=== PATIENT | male | born 1960 | race Caucasian/White ===

== ENCOUNTER → 2019-02-04 | Outpatient (CLI) | payer MEDICAID, OTHER ==
--- NOTE | 2019-02-04 19:38 | REP ---
HISTORY: Pain after trauma. COMPARISON: None. FINDINGS: No acute fracture or destructive osseous lesion. Electronically Signed by Og Gonzalez DO 02/04/2019 07:46 P
--- NOTE | 2019-02-04 19:39 | REP ---
HISTORY: Pain after trauma. COMPARISON: None. FINDINGS: The joint spaces are symmetric and relatively well maintained. There is no evidence of acute fracture or destructive osseous lesion. IMPRESSION: Negative. Electronically Signed by Og Gonzalez DO 02/04/2019 07:46 P
== END ==
LOC: M ADAMS 18:02
PROVIDERS: ATTEND Physician Assistant
DX: S60.221A Contusion of right hand, initial encounter (principal); S60.211A Contusion of right wrist, initial encounter; X58.XXXA Exposure to other specified factors, initial encounter; Y92.89 Other specified places as the place of occurrence of the external cause

== ENCOUNTER 2019-09-18 14:14 | Emergency (ER) | payer OTHER ==
[~2019-09-18] VITALS: Ht 177.8 cm; Wt 74.1 kg
[2019-09-18 14:43] LABS: BASO % 0.6 % (0.0-1.0); EOS % 0.3 % (0.0-3.0); HEMATOCRIT 40.4 % (42.0-52.0); HEMOGLOBIN 13.7 g/dl (13.5-17.5); LYMPH # 1.9 10^3/uL (1.5-5.0); LYMPH % 26.3 % (24.0-44.0); MEAN CORPUSCULAR HEMOGLOBIN 28.2 pg (27.0-33.0); MEAN CORPUSCULAR HGB CONC 33.9 g/dl (32.0-36.5); MEAN CORPUSCULAR VOLUME 83.1 fl (80.0-96.0); MONO # 0.5 10^3/uL (0.0-0.8); MONO % 6.8 % (0.0-5.0); NEUTROPHILS # 4.6 10^3/uL (1.5-8.5); NEUTROPHILS % 65.6 % (36.0-66.0); PLATELET COUNT, AUTOMATED 240 10^3/uL (150-450); RED BLOOD COUNT 4.86 10^6/uL (4.30-6.10); WHITE BLOOD COUNT 7.1 10^3/uL (4.0-10.0)
--- NOTE | 2019-09-18 15:08 | REP ---
CHEST, SINGLE VIEW: There is no evidence of acute infiltrate. No pleural effusion is seen. The heart is normal in size. The mediastinal silhouette is unremarkable. The visualized osseous structures are intact. IMPRESSION: No acute pulmonary disease. Electronically Signed by Jason Vale MD 09/22/2019 04:06 P
[2019-09-18 15:18] LABS: BLOOD UREA NITROGEN 11 MG/DL (7-18); CALCIUM LEVEL 9.1 MG/DL (8.5-10.1); CARBON DIOXIDE LEVEL 25 MEQ/L (21-32); CHLORIDE LEVEL 108 MEQ/L (98-107); CK-MB VALUE MASS < 1.0 NG/ML (<3.6); CPK CREATINE PHOSPHOKINASE 118 U/L (39-308); CREATININE FOR GFR 0.95 MG/DL (0.70-1.30); GLOMERULAR FILTRATION RATE > 60.0 (>56); GLUCOSE, FASTING 89 MG/DL (70-100); MB/CK RELATIVE INDEX 0.85 (< OR =4); SODIUM LEVEL 139 MEQ/L (136-145); TROPONIN I < 0.02 NG/ML (< 0.10)
[2019-09-18 20:15] LABS: CK-MB VALUE MASS < 1.0 NG/ML (<3.6); CPK CREATINE PHOSPHOKINASE 128 U/L (39-308); MB/CK RELATIVE INDEX 0.78 (< OR =4); TROPONIN I < 0.02 NG/ML (< 0.10)
[2019-09-18 21:01] VITALS: BP 122/89
--- NOTE | 2019-09-19 18:34 | ECGEPIP ---
[facility] - ED Test Date: 2019-09-18 Pat Name: ALFRED JUSTIN Department: Room: - Gender: Male Pan Operator: JBridgette : 1960 Requested By: Victorino Juan Order Number: [id number] Reading MD: Stefanie Venegas Measurements Intervals [place] Rate: 98 P: 61 MO: 154 QRS: 49 QRSD: 83 T: 61 QT: 321 QTc: 412 Interpretive Statements SINUS RHYTHM NO PRIOR Electronically Signed on 09-19-2019 18:34:19 EST by Stefanie Venegas
--- NOTE | 2019-09-19 18:42 | ECGEPIP ---
[facility] - ED Test Date: 2019-09-18 Pat Name: ALFRED JUSTIN Department: Room: - Gender: Male Quitline Counselor: PEDRO : 1960 Requested By: Victorino Juan Order Number: [id number] Reading MD: Stefanie Venegas Measurements Intervals [place] Rate: 78 P: 66 HI: 170 QRS: 56 QRSD: 88 T: 63 QT: 356 QTc: 407 Interpretive Statements SINUS RHYTHM DECREASED RATE 09/18/19 Electronically Signed on 09-19-2019 18:42:29 EST by Stefanie Venegas
== END 2019-09-18 21:13 | disposition home or self-care (01) ==
LOC: M ED 14:14
DX: R07.9 Chest pain, unspecified (principal); Z88.6 Allergy status to analgesic agent; Z88.8 Allergy status to other drugs, medicaments and biological substances

== ENCOUNTER → 2021-08-30 | Outpatient (REF) | payer OTHER ==
[2021-08-30 12:36] LABS: BASO % 0.5 % (0.0-1.0); EOS # 0.1 10^3/uL (0.0-0.5); EOS % 0.9 % (0.0-3.0); HEMATOCRIT 44.2 % (42.0-52.0); HEMOGLOBIN 14.7 g/dl (13.5-17.5); LYMPH % 35.3 % (24.0-44.0); MEAN CORPUSCULAR HEMOGLOBIN 28.1 pg (27.0-33.0); MEAN CORPUSCULAR HGB CONC 33.3 g/dl (32.0-36.5); MEAN CORPUSCULAR VOLUME 84.5 fl (80.0-96.0); MONO # 0.6 10^3/uL (0.0-0.8); MONO % 11.3 % (2.0-8.0); NEUTROPHILS # 2.9 10^3/uL (1.5-8.5); NEUTROPHILS % 51.8 % (36.0-66.0); PLATELET COUNT, AUTOMATED 279 10^3/uL (150-450); RED BLOOD COUNT 5.23 10^6/uL (4.30-6.10); WHITE BLOOD COUNT 5.7 10^3/uL (4.0-10.0)
[2021-08-30 13:12] LABS: C REACTIVE PROTEIN QUANTITATIV < 0.30 MG/DL (0.00-0.30); RHEUMATOID FACTOR QUANT < 10.0 IU/ML (<15.0)
[2021-08-30 13:16] LABS: ALBUMIN 3.8 GM/DL (3.2-5.2); ALT/SGPT 24 U/L (12-78); BILIRUBIN,TOTAL 0.3 MG/DL (0.2-1.0); BLOOD UREA NITROGEN 10 MG/DL (7-18); CALCIUM LEVEL 9.4 MG/DL (8.5-10.1); CARBON DIOXIDE LEVEL 26 MEQ/L (21-32); CHLORIDE LEVEL 109 MEQ/L (98-107); CREATININE FOR GFR 0.97 MG/DL (0.70-1.30); FREE T4 0.92 NG/DL (0.76-1.46); GLOMERULAR FILTRATION RATE > 60.0 (>56); GLUCOSE, FASTING 81 MG/DL (70-100); POTASSIUM SERUM 4.5 MEQ/L (3.5-5.1); SODIUM LEVEL 140 MEQ/L (136-145); THYROID STIMULATING HORMONE 0.677 uIU/ML (0.358-3.740); TOTAL PROTEIN 6.9 GM/DL (6.4-8.2)
[2021-08-30 13:28] LABS: FOLATE 12.5 NG/ML; TOTAL 25(OH) VITAMIN D 23.5 NG/ML (30.0-100.0); VITAMIN B12 LEVEL 252 PG/ML
[2021-08-30 13:37] LABS: HEMOGLOBIN A1c 5.7 %
[2021-08-31 20:12] LABS: ANA (HEP2) Negative (.); Lyme Disease IgG/IgM Antibodie <0.91 ISR (0.00-0.90); Lyme Disease IgM Ab Quantitati <0.80 index (0.00-0.79)
== END ==
LOC: M SFHCADAM 10:27
PROVIDERS: ATTEND Physician Assistant
DX: R55 Syncope and collapse (principal); R00.1 Bradycardia, unspecified; R07.81 Pleurodynia; K21.9 Gastro-esophageal reflux disease without esophagitis; R13.19 Other dysphagia; F17.210 Nicotine dependence, cigarettes, uncomplicated; R06.00 Dyspnea, unspecified; Z12.5 Encounter for screening for malignant neoplasm of prostate; Z13.1 Encounter for screening for diabetes mellitus

== ENCOUNTER → 2021-08-30 | Outpatient (CLI) | payer OTHER | LOC: M ADAMS 11:14 | PROVIDERS: ATTEND Physician Assistant | DX: R55 Syncope and collapse (principal); M25.562 Pain in left knee; M25.561 Pain in right knee; R06.00 Dyspnea, unspecified; R07.81 Pleurodynia; M54.2 Cervicalgia ==

== ENCOUNTER → 2021-08-31 | Outpatient (CLI) | payer OTHER ==
[~2021-08-31] MED LIST: ISOVUE-370 76% 100ML VIAL As Ordered ONE
== END ==
LOC: M RAD 09:02
PROVIDERS: ATTEND Physician Assistant
DX: R07.81 Pleurodynia (principal)
CPT/HCPCS: 71275; Q9967

== ENCOUNTER → 2021-10-06 | Outpatient (CLI) | payer OTHER | LOC: M PLAIMG 09:33 | PROVIDERS: ATTEND Physician Assistant | DX: M54.16 Radiculopathy, lumbar region (principal); M54.2 Cervicalgia ==

== ENCOUNTER 2022-06-16 18:20 | Emergency (ER) | payer OTHER ==
[~2022-06-16] VITALS: Ht 177.8 cm; Wt 84.5 kg
[2022-06-16] MEDS: MORPHINE 4 MG/ML 1ML VIAL IV PRN ×2 (18:43→19:40)
[2022-06-16] MEDS ORDERED: ISOVUE-370 76% 100ML VIAL As Ordered ONE (18:53)
[2022-06-16 19:24] LABS: BASO # 0.1 10^3/uL (0.0-0.2); BASO % 0.5 % (0.0-1.0); EOS # 0.1 10^3/uL (0.0-0.5); EOS % 0.6 % (0.0-3.0); HEMOGLOBIN 14.3 g/dl (13.5-17.5); LYMPH # 1.8 10^3/uL (1.5-5.0); LYMPH % 17.8 % (24.0-44.0); MEAN CORPUSCULAR HEMOGLOBIN 28.1 pg (27.0-33.0); MEAN CORPUSCULAR HGB CONC 33.3 g/dl (32.0-36.5); MEAN CORPUSCULAR VOLUME 84.5 fl (80.0-96.0); MONO # 0.6 10^3/uL (0.0-0.8); MONO % 6.2 % (2.0-8.0); NEUTROPHILS # 7.4 10^3/uL (1.5-8.5); NEUTROPHILS % 74.4 % (36.0-66.0); PLATELET COUNT, AUTOMATED 288 10^3/uL (150-450); RED BLOOD COUNT 5.09 10^6/uL (4.30-6.10); WHITE BLOOD COUNT 9.9 10^3/uL (4.0-10.0)
[2022-06-16 19:35] LABS: INR 1.93; PROTHROMBIN TIME 22.4 SECONDS (12.5-14.5)
[2022-06-16 19:36] LABS: PARTIAL THROMBOPLASTIN TIME 33.5 SECONDS (24.8-34.2)
[2022-06-16 19:58] LABS: CK-MB VALUE MASS < 1.0 NG/ML (<3.6); ETHYL ALCOHOL (ETHANOL) 0.003 % (0.000-0.010); LIPASE 20 U/L (12-53)
[2022-06-16 20:00] LABS: ALKALINE PHOSPHATASE 85 U/L (46-116); ALT/SGPT 18 U/L (7.0-40); AMYLASE 35 U/L (30-118); AST/SGOT 17 U/L (<34); BILIRUBIN,DIRECT 0.1 MG/DL (<0.4); BILIRUBIN,TOTAL 0.4 MG/DL (0.3-1.2); CPK CREATINE PHOSPHOKINASE 141 U/L (46-171); TOTAL PROTEIN 6.7 G/DL (5.7-8.2)
[2022-06-16 20:09] LABS: RSV AMPLIFICATION NEGATIVE (NEGATIVE)
[2022-06-16 20:26] LABS: HEMATOCRIT 39.7 % (42.0-52.0); HEMOGLOBIN 13.1 g/dl (13.5-17.5); MEAN CORPUSCULAR HEMOGLOBIN 28.2 pg (27.0-33.0); MEAN CORPUSCULAR VOLUME 85.6 fl (80.0-96.0); PLATELET COUNT, AUTOMATED 251 10^3/uL (150-450); RED BLOOD COUNT 4.64 10^6/uL (4.30-6.10); WHITE BLOOD COUNT 12.6 10^3/uL (4.0-10.0)
[2022-06-16] MEDS ORDERED: PERCOCET 5MG/325MG TAB PO ONE (20:30)
[2022-06-16 22:01] LABS: CK-MB VALUE MASS < 1.0 NG/ML (<3.6)
[2022-06-16 22:04] LABS: CPK CREATINE PHOSPHOKINASE 137 U/L (46-171); MB/CK RELATIVE INDEX 0.72 (< OR =4)
[2022-06-16] MEDS ORDERED: ONDANSETRON 4MG 2ML VIAL IV ONE (22:05)
[2022-06-16] MEDS ORDERED: ALBU8.5H PO (23:33)
[2022-06-16] MEDS ORDERED: GABA-282 PO (23:33)
[2022-06-16] MEDS ORDERED: OMEP40CA5 PO (23:33)
[2022-06-16] MEDS ORDERED: CYAN100081 PO (23:33)
[2022-06-16] MEDS ORDERED: XARE20TA PO (23:33)
[2022-06-16] MEDS ORDERED: DILT30TA PO (23:33)
[2022-06-16] MEDS ORDERED: AMLO2.5T3 PO (23:33)
[2022-06-16] MEDS ORDERED: MORPHINE 2 MG/ML 1ML VIAL IV PRN (23:35)
[2022-06-16] MEDS ORDERED: HOME MED LIST COMPLETE! XX SCH (23:35)
[2022-06-16] MEDS ORDERED: ALBUTEROL 90 MCG/ACT 8GM HFA INHALER INH PRN (23:35)
[2022-06-16] MEDS ORDERED: DOCUSATE SODIUM 100MG CAPSULE PO PRN (23:35)
[2022-06-16] MEDS ORDERED: ACETAMINOPHEN TAB 650MG DOSE (2X325MG) PO PRN (23:35)
[2022-06-16 23:45] VITALS: BP 125/86
[2022-06-17] MEDS ORDERED: PERCOCET 5MG/325MG TAB PO PRN (03:00)
[2022-06-17] MEDS ORDERED: ONDANSETRON 4MG 2ML VIAL IV PRN (04:00)
[2022-06-17] MEDS ORDERED: OMEPRAZOLE 20MG CAP PO SCH (09:00)
[2022-06-17] MEDS ORDERED: CYANOCOBALAMIN 500 MCG TAB PO SCH (09:00)
[2022-06-17] MEDS ORDERED: GABAPENTIN 300 MG CAP PO SCH (09:00)
[2022-06-17] MEDS ORDERED: OMEP40CA4 PO (18:44)
[2022-06-17] MEDS ORDERED: ACET-683 PO (18:45)
== END 2022-06-17 00:11 | disposition other institution (70) ==
LOC: EDBD 18:20 → M ED 18:20 → UNDOADMOB 18:21 → M ED INP 18:21 → M ED 06-17 00:11
DX: S30.0XXA Contusion of lower back and pelvis, initial encounter (principal); S63.601A Unspecified sprain of right thumb, initial encounter; R55 Syncope and collapse; R07.9 Chest pain, unspecified; W14.XXXA Fall from tree, initial encounter; Y92.89 Other specified places as the place of occurrence of the external cause; I48.91 Unspecified atrial fibrillation; I10 Essential (primary) hypertension; N40.0 Benign prostatic hyperplasia without lower urinary tract symptoms; Z87.442 Personal history of urinary calculi; F17.200 Nicotine dependence, unspecified, uncomplicated; M51.36 Other intervertebral disc degeneration, lumbar region; M51.37 Other intervertebral disc degeneration, lumbosacral region; M48.02 Spinal stenosis, cervical region; Z79.899 Other long term (current) drug therapy; Z88.5 Allergy status to narcotic agent; Z88.8 Allergy status to other drugs, medicaments and biological substances; J30.89 Other allergic rhinitis
CPT/HCPCS: 70450; 71045; 71260; 72125; 72128; 72131; 73140; 74177; 80047; 80076; 82077; 82150; 82550; 82553; 83605; 83690; 85025; 85027; 85610; 85730; 86850; 86900; 86901; 87631; 93005; 93041; 94760; 96374; 96375; 96376; 99285; J2270; J2405

== ENCOUNTER 2022-06-17 15:29 | Inpatient (IN) | payer OTHER ==
[~2022-06-17] VITALS: Ht 177.8 cm; Wt 80.8 kg
[~2022-06-17 15:29] MED LIST changes: +ALBU8.5H PO; +AMLO2.5T3 PO; +CYAN100081 PO; +DILT30TA PO; +GABA-282 PO; -ISOVUE-370 76% 100ML VIAL As Ordered ONE; +OMEP40CA5 PO; +XARE20TA PO
[2022-06-17] MEDS ORDERED: MORPHINE 4 MG/ML 1ML VIAL IV PRN ×2 (15:40→22:00)
[2022-06-17] MEDS ORDERED: ONDANSETRON 4MG 2ML VIAL IV ONE ×2 (15:40→15:50)
[2022-06-17 16:04] LABS: BASO % 0.3 % (0.0-1.0); EOS % 0.2 % (0.0-3.0); HEMATOCRIT 40.7 % (42.0-52.0); HEMOGLOBIN 13.6 g/dl (13.5-17.5); LYMPH # 1.2 10^3/uL (1.5-5.0); LYMPH % 11.9 % (24.0-44.0); MEAN CORPUSCULAR HEMOGLOBIN 28.3 pg (27.0-33.0); MEAN CORPUSCULAR HGB CONC 33.4 g/dl (32.0-36.5); MEAN CORPUSCULAR VOLUME 84.6 fl (80.0-96.0); MONO # 0.6 10^3/uL (0.0-0.8); MONO % 6.4 % (2.0-8.0); NEUTROPHILS # 7.8 10^3/uL (1.5-8.5); NEUTROPHILS % 80.9 % (36.0-66.0); PLATELET COUNT, AUTOMATED 263 10^3/uL (150-450); RED BLOOD COUNT 4.81 10^6/uL (4.30-6.10); WHITE BLOOD COUNT 9.7 10^3/uL (4.0-10.0)
[2022-06-17 16:26] LABS: CK-MB VALUE MASS < 1.0 NG/ML (<3.6); LIPASE 20 U/L (12-53)
[2022-06-17 16:28] LABS: ALBUMIN 3.8 G/DL (3.2-5.2); ALKALINE PHOSPHATASE 81 U/L (46-116); ALT/SGPT 17 U/L (7.0-40); AST/SGOT 15 U/L (<34); BILIRUBIN,DIRECT 0.2 MG/DL (<0.4); BILIRUBIN,TOTAL 0.6 MG/DL (0.3-1.2); BLOOD UREA NITROGEN 14 MG/DL (9-23); CALCIUM LEVEL 8.8 MG/DL (8.3-10.6); CARBON DIOXIDE LEVEL 24 MMOL/L (20-31); CHLORIDE LEVEL 106 MMOL/L (98-107); CPK CREATINE PHOSPHOKINASE 135 U/L (46-171); GLOMERULAR FILTRATION RATE > 60.0 (>49); GLUCOSE, FASTING 130 MG/DL (74-106); MB/CK RELATIVE INDEX 0.74 (< OR =4); POTASSIUM SERUM 3.9 MMOL/L (3.5-5.1); SODIUM LEVEL 139 MMOL/L (136-145); TOTAL PROTEIN 6.4 G/DL (5.7-8.2)
[2022-06-17 16:48] LABS: RSV AMPLIFICATION NEGATIVE (NEGATIVE)
[2022-06-17] MEDS ORDERED: OMEP40CA4 PO (18:44)
[2022-06-17] MEDS ORDERED: ACET-683 PO (18:45)
[2022-06-17] MEDS ORDERED: HOME MED LIST COMPLETE! XX SCH (18:50)
[2022-06-17] MEDS ORDERED: ALBUTEROL 90 MCG/ACT 8GM HFA INHALER INH PRN (19:15)
[2022-06-17] MEDS: KETOROLAC 30 MG/ML 1ML VIAL IV PRN (19:39)
[2022-06-17] MEDS: OMEPRAZOLE 20MG CAP PO SCH (23:27)
[2022-06-17] MEDS: ACETAMINOPHEN 500 MG TAB PO SCH (23:27)
[2022-06-17 23:52] VITALS: BP 124/77
[2022-06-18] MEDS: ANALGESIC BALM CRM 3OZ TOP SCH ×5 (00:17→20:34)
[2022-06-18 04:02] VITALS: BP 107/72
[2022-06-18] MEDS: KETOROLAC 30 MG/ML 1ML VIAL IV PRN ×2 (06:22→18:09)
[2022-06-18 08:00] VITALS: BP 123/79
[2022-06-18] MEDS: CYANOCOBALAMIN 500 MCG TAB PO SCH (08:16)
[2022-06-18] MEDS: GABAPENTIN 300 MG CAP PO SCH (08:16)
[2022-06-18] MEDS: ACETAMINOPHEN 500 MG TAB PO SCH ×3 (08:16→20:36)
[2022-06-18] MEDS: DOCUSATE SODIUM 100MG CAPSULE PO SCH (09:00)
[2022-06-18] MEDS ORDERED: HYDROMORPHONE HCL 0.5 MG/ 0.5 ML SYRINGE (J1170 PER 1) IV PRN (11:35)
[2022-06-18 12:00] VITALS: BP 112/60
[2022-06-18 16:00] VITALS: BP 110/60
[2022-06-18] MEDS: RIVAROXABAN 20MG TAB (XARELTO) PO SCH (18:01)
[2022-06-18] MEDS: NS 0.45% 1,000 ML IV SCH (18:09)
[2022-06-18 20:00] VITALS: BP 115/57
[2022-06-18] MEDS: OMEPRAZOLE 20MG CAP PO SCH (20:35)
[2022-06-19] VITALS (21 sets, daily range): BP systolic 113–139; BP diastolic 1–94; O2SAT 91–97
[2022-06-19] MEDS: NS 0.45% 1,000 ML IV SCH ×2 (04:18→15:27)
[2022-06-19] MEDS: KETOROLAC 30 MG/ML 1ML VIAL IV PRN ×2 (04:31→20:45)
[2022-06-19] MEDS: ONDANSETRON 4MG 2ML VIAL IV PRN ×4 (05:05→18:21)
[2022-06-19] MEDS: MORPHINE 2 MG/ML 1ML VIAL IV PRN ×4 (05:07→18:21)
[2022-06-19 05:35] LABS: HEMATOCRIT 38.7 % (42.0-52.0); HEMOGLOBIN 12.6 g/dl (13.5-17.5); MEAN CORPUSCULAR HEMOGLOBIN 27.9 pg (27.0-33.0); MEAN CORPUSCULAR HGB CONC 32.6 g/dl (32.0-36.5); MEAN CORPUSCULAR VOLUME 85.8 fl (80.0-96.0); PLATELET COUNT, AUTOMATED 243 10^3/uL (150-450); RED BLOOD COUNT 4.51 10^6/uL (4.30-6.10); WHITE BLOOD COUNT 5.6 10^3/uL (4.0-10.0)
[2022-06-19] MEDS ORDERED: LORazepam 2 MG/ML VIAL IV STA ×2 (05:49→07:40)
[2022-06-19 06:00] LABS: MAGNESIUM LEVEL 1.8 MG/DL (1.8-2.4)
[2022-06-19 06:02] LABS: BLOOD UREA NITROGEN 15 MG/DL (9-23); CALCIUM LEVEL 8.2 MG/DL (8.3-10.6); CARBON DIOXIDE LEVEL 23 MMOL/L (20-31); CHLORIDE LEVEL 106 MMOL/L (98-107); CREATININE FOR GFR 0.94 MG/DL (0.70-1.30); GLOMERULAR FILTRATION RATE > 60.0 (>49); GLUCOSE, FASTING 104 MG/DL (74-106); PHOSPHORUS LEVEL 2.3 MG/DL (2.4-5.1); POTASSIUM SERUM 3.9 MMOL/L (3.5-5.1); SODIUM LEVEL 139 MMOL/L (136-145)
[2022-06-19 06:33] LABS: CHOLESTEROL LEVEL 210 MG/DL (<200); CHOLESTEROL RISK RATIO 6.66 (<5); HDL CHOLESTEROL 31.5 MG/DL (>40); LDL CHOLESTEROL 154.9 MG/DL (<100); NON-HDL-C 179 MG/DL; TRIGLYCERIDES LEVEL 118 MG/DL (<150)
[2022-06-19] MEDS ORDERED: ISOVUE-370 76% 100ML VIAL As Ordered ONE (06:40)
[2022-06-19] MEDS: DOCUSATE SODIUM 100MG CAPSULE PO SCH (09:00)
[2022-06-19] MEDS ORDERED: LIDOCAINE 5% (LIDODERM) PATCH TD SCH (09:00)
[2022-06-19] MEDS: GABAPENTIN 300 MG CAP PO SCH (09:32)
[2022-06-19] MEDS: ACETAMINOPHEN 500 MG TAB PO SCH ×3 (09:33→20:25)
[2022-06-19] MEDS: CYANOCOBALAMIN 500 MCG TAB PO SCH (09:33)
[2022-06-19] MEDS: ANALGESIC BALM CRM 3OZ TOP SCH ×4 (09:34→21:00)
[2022-06-19] MEDS: RIVAROXABAN 20MG TAB (XARELTO) PO SCH (18:02)
[2022-06-19] MEDS: OMEPRAZOLE 20MG CAP PO SCH (20:25)
[2022-06-20] VITALS (10 sets, daily range): BP systolic 111–145; BP diastolic 69–92; O2SAT 91–93
[2022-06-20] MEDS: NS 0.45% 1,000 ML IV SCH (03:09)
[2022-06-20] MEDS: MORPHINE 2 MG/ML 1ML VIAL IV PRN ×2 (03:44→08:59)
[2022-06-20] MEDS: ONDANSETRON 4MG 2ML VIAL IV PRN ×2 (03:45→08:58)
[2022-06-20] MEDS: KETOROLAC 30 MG/ML 1ML VIAL IV PRN ×2 (06:50→16:10)
[2022-06-20] MEDS: DOCUSATE SODIUM 100MG CAPSULE PO SCH (08:43)
[2022-06-20] MEDS: ANALGESIC BALM CRM 3OZ TOP SCH ×4 (08:43→20:40)
[2022-06-20] MEDS: CYANOCOBALAMIN 500 MCG TAB PO SCH (09:00)
[2022-06-20] MEDS: GABAPENTIN 300 MG CAP PO SCH (09:00)
[2022-06-20] MEDS: ACETAMINOPHEN 500 MG TAB PO SCH ×3 (09:00→20:40)
[2022-06-20] MEDS ORDERED: MIRALAX *UNIT DOSE* 17GM PACKET PO PRN (10:05)
[2022-06-20] MEDS ORDERED: MOM 30ML SUSPENSION UDC PO PRN (10:05)
[2022-06-20] MEDS: PERCOCET 5MG/325MG TAB PO SCH ×3 (11:03→23:12)
[2022-06-20] MEDS: RIVAROXABAN 20MG TAB (XARELTO) PO SCH (17:52)
[2022-06-20] MEDS: OMEPRAZOLE 20MG CAP PO SCH (20:39)
[2022-06-21 04:00] VITALS: BP 118/84
[2022-06-21] MEDS: PERCOCET 5MG/325MG TAB PO SCH ×4 (05:04→16:32)
[2022-06-21 08:00] VITALS: BP 115/89
[2022-06-21] MEDS: ONDANSETRON 4MG 2ML VIAL IV PRN ×2 (08:20→15:09)
[2022-06-21] MEDS: DOCUSATE SODIUM 100MG CAPSULE PO SCH (08:54)
[2022-06-21] MEDS: CYANOCOBALAMIN 500 MCG TAB PO SCH (08:55)
[2022-06-21] MEDS: GABAPENTIN 300 MG CAP PO SCH (08:55)
[2022-06-21] MEDS: ACETAMINOPHEN 500 MG TAB PO SCH ×3 (08:55→20:14)
[2022-06-21] MEDS: ANALGESIC BALM CRM 3OZ TOP SCH ×4 (08:56→20:14)
[2022-06-21] MEDS: SENNA 8.6 MG TAB (SENOKOT) PO PRN (15:09)
[2022-06-21] MEDS ORDERED: ONDANSETRON 4MG 2ML VIAL IV ONE (16:40)
[2022-06-21] MEDS ORDERED: FLEET ENEMA PR PRN (16:40)
[2022-06-21] MEDS ORDERED: FLEET ENEMA PR ONE (17:00)
[2022-06-21] MEDS ORDERED: MAGNESIUM CITRATE 300 ML BTL PO ONE (18:00)
[2022-06-21] MEDS: RIVAROXABAN 20MG TAB (XARELTO) PO SCH (18:16)
[2022-06-21] MEDS: OMEPRAZOLE 20MG CAP PO SCH (20:12)
[2022-06-21 20:14] VITALS: BP 147/97
[2022-06-22] MEDS: KETOROLAC 30 MG/ML 1ML VIAL IV PRN (03:45)
[2022-06-22] MEDS: DOCUSATE SODIUM 100MG CAPSULE PO SCH (09:31)
[2022-06-22] MEDS: GABAPENTIN 300 MG CAP PO SCH (09:31)
[2022-06-22] MEDS: CYANOCOBALAMIN 500 MCG TAB PO SCH (09:32)
[2022-06-22] MEDS: ACETAMINOPHEN 500 MG TAB PO SCH (09:32)
[2022-06-22] MEDS: SENNA 8.6 MG TAB (SENOKOT) PO PRN (09:33)
[2022-06-22] MEDS: ANALGESIC BALM CRM 3OZ TOP SCH ×2 (09:34→12:30)
[2022-06-22] MEDS ORDERED: SENN18TA PO (09:43)
[2022-06-22] MEDS ORDERED: MILKSUS3 PO (09:46)
[2022-06-22] MEDS ORDERED: OXYC1TAB23 PO (09:46)
[2022-06-22] MEDS ORDERED: DILT30TA PO (12:12)
[2022-06-22] MEDS ORDERED: GABA-282 PO (12:12)
[2022-06-22 12:29] VITALS: BP 145/98
[2022-06-22] MEDS ORDERED: amLODIPine 5 MG TAB PO ONE (12:30)
[2022-06-22] MEDS ORDERED: cloNIDine 0.1MG TABLET PO ONE (12:30)
[2022-06-22 12:38] VITALS: BP 145/98
[2022-06-22 13:04] VITALS: BP 149/96
[2022-06-22] MEDS ORDERED: PERCOCET 5MG/325MG TAB PO ONE (13:05)
[2022-06-22] MEDS ORDERED: cloNIDine 0.2 MG TAB PO ONE (13:05)
== END 2022-06-22 13:10 | disposition home or self-care (01) | DRG 135 ==
LOC: M ED 15:29 → EDBD 15:29 → M ED INP 17:57 → ENRESERV 23:20 → M PCU 23:37
PROVIDERS: ADMIT Internal Medicine; ATTEND General Practice
PROC: B246ZZZ Ultrasonography of Right and Left Heart (ICD-10-PCS; principal; 2022-06-17)
DX: S27.1XXA Traumatic hemothorax, initial encounter (principal); S22.42XA Multiple fractures of ribs, left side, initial encounter for closed fracture; I48.20 Chronic atrial fibrillation, unspecified; M48.02 Spinal stenosis, cervical region; I10 Essential (primary) hypertension; K21.9 Gastro-esophageal reflux disease without esophagitis; M25.561 Pain in right knee; R20.0 Anesthesia of skin; F17.210 Nicotine dependence, cigarettes, uncomplicated; M48.061 Spinal stenosis, lumbar region without neurogenic claudication; R07.89 Other chest pain; J30.1 Allergic rhinitis due to pollen; G89.29 Other chronic pain; M25.511 Pain in right shoulder; F40.240 Claustrophobia; W14.XXXA Fall from tree, initial encounter; Y92.9 Unspecified place or not applicable; Y93.9 Activity, unspecified; Y99.8 Other external cause status; K59.03 Drug induced constipation; T40.2X5A Adverse effect of other opioids, initial encounter; J98.11 Atelectasis; Z79.899 Other long term (current) drug therapy; Z79.01 Long term (current) use of anticoagulants; Z88.5 Allergy status to narcotic agent; Z88.8 Allergy status to other drugs, medicaments and biological substances

== ENCOUNTER → 2023-05-03 | Outpatient (CLI) | payer OTHER ==
[~2023-05-03] MED LIST changes: +ACET-683 PO; +MILKSUS3 PO; +OMEP40CA4 PO; +OXYC1TAB23 PO; +SENN-111 PO
[2023-05-07 15:18] LABS: C REACTIVE PROTEIN QUANTITATIV 2 MG/L (0-10); RHEUMATOID FACTOR QUANT < 10.0 IU/ML (<14.0)
[2023-05-07 15:20] LABS: CA19-9 TUMOR MARKER,CARBOHYDRA 5 U/ML (0-35)
== END ==
LOC: M LABDRWAD 08:56
PROVIDERS: ATTEND Internal Medicine Pulmonary Disease
DX: J45.40 Moderate persistent asthma, uncomplicated (principal); J44.9 Chronic obstructive pulmonary disease, unspecified

== ENCOUNTER → 2023-07-16 | Outpatient (REF) | payer MEDICAID ==
[2023-07-16 16:39] LABS: HEMATOCRIT 46.3 % (42.0-52.0); HEMOGLOBIN 15.2 g/dl (13.5-17.5); MEAN CORPUSCULAR HEMOGLOBIN 28.6 pg (27.0-33.0); MEAN CORPUSCULAR HGB CONC 32.8 g/dl (32.0-36.5); PLATELET COUNT, AUTOMATED 278 10^3/uL (150-450); RED BLOOD COUNT 5.32 10^6/uL (4.30-6.10); WHITE BLOOD COUNT 6.9 10^3/uL (4.0-10.0)
[2023-07-16 17:00] LABS: PSA SCREENING 0.96 NG/ML (< 4.00)
[2023-07-16 17:04] LABS: ALBUMIN 3.9 G/DL (3.2-5.2); ALKALINE PHOSPHATASE 80 U/L (46-116); ALT/SGPT 12 U/L (7.0-40); AST/SGOT 10 U/L (<34); BILIRUBIN,TOTAL 0.4 MG/DL (0.3-1.2); BLOOD UREA NITROGEN 9 MG/DL (9-23); CALCIUM LEVEL 9.2 MG/DL (8.3-10.6); CARBON DIOXIDE LEVEL 27 MMOL/L (20-31); CHLORIDE LEVEL 109 MMOL/L (98-107); CHOLESTEROL LEVEL 237 MG/DL (<200); CHOLESTEROL RISK RATIO 6.33 (<5); CREATININE FOR GFR 0.88 MG/DL (0.70-1.30); GLOMERULAR FILTRATION RATE > 60.0 (>49); GLUCOSE, FASTING 94 MG/DL (74-106); HDL CHOLESTEROL 37.4 MG/DL (>40); LDL CHOLESTEROL 165.6 MG/DL (<100); NON-HDL-C 199.6 MG/DL; POTASSIUM SERUM 4.4 MMOL/L (3.5-5.1); SODIUM LEVEL 141 MMOL/L (136-145); TOTAL PROTEIN 6.7 G/DL (5.7-8.2); TRIGLYCERIDES LEVEL 170 MG/DL (<150); VITAMIN B12 LEVEL 326 PG/ML (211-911)
== END ==
LOC: M SFHCADAM 13:51
PROVIDERS: ATTEND Physician Assistant
DX: I48.0 Paroxysmal atrial fibrillation (principal); Z12.11 Encounter for screening for malignant neoplasm of colon; F17.210 Nicotine dependence, cigarettes, uncomplicated; Z12.5 Encounter for screening for malignant neoplasm of prostate; S22.42XD Multiple fractures of ribs, left side, subsequent encounter for fracture with routine healing; L23.1 Allergic contact dermatitis due to adhesives; E53.8 Deficiency of other specified B group vitamins; Z13.220 Encounter for screening for lipoid disorders

== ENCOUNTER → 2023-09-06 | Outpatient (CLI) | payer OTHER | LOC: M RAD 10:59 | PROVIDERS: ATTEND Internal Medicine Pulmonary Disease | DX: F17.218 Nicotine dependence, cigarettes, with other nicotine-induced disorders (principal); J43.9 Emphysema, unspecified ==

== ENCOUNTER → 2023-09-19 | Outpatient (REF) | payer MEDICAID, OTHER ==
[2023-09-19 13:47] LABS: ALBUMIN 3.8 G/DL (3.2-5.2); ALKALINE PHOSPHATASE 76 U/L (46-116); ALT/SGPT 15 U/L (7.0-40); AST/SGOT < 8 U/L (<34); BILIRUBIN,TOTAL 0.4 MG/DL (0.3-1.2); BLOOD UREA NITROGEN 12 MG/DL (9-23); CALCIUM LEVEL 8.6 MG/DL (8.3-10.6); CARBON DIOXIDE LEVEL 27 MMOL/L (20-31); CHLORIDE LEVEL 109 MMOL/L (98-107); CHOLESTEROL LEVEL 171 MG/DL (<200); CHOLESTEROL RISK RATIO 4.35 (<5); CREATININE FOR GFR 0.89 MG/DL (0.70-1.30); GLOMERULAR FILTRATION RATE > 60.0 (>49); GLUCOSE, FASTING 108 MG/DL (74-106); HDL CHOLESTEROL 39.3 MG/DL (>40); LDL CHOLESTEROL 113.1 MG/DL (<100); NON-HDL-C 131.7 MG/DL; POTASSIUM SERUM 4.4 MMOL/L (3.5-5.1); SODIUM LEVEL 138 MMOL/L (136-145); TOTAL PROTEIN 6.6 G/DL (5.7-8.2); TRIGLYCERIDES LEVEL 93 MG/DL (<150)
== END ==
LOC: M SFHCADAM 10:24
PROVIDERS: ATTEND Physician Assistant
DX: E78.2 Mixed hyperlipidemia (principal)

== ENCOUNTER → 2023-09-23 | Outpatient (CLI) | payer OTHER | LOC: M SLEEP HO 08-20 10:19 | PROVIDERS: ATTEND Internal Medicine Pulmonary Disease | DX: R06.83 Snoring (principal) ==

== ENCOUNTER → 2024-09-30 | Outpatient (CLI) | payer OTHER ==
[~2024-09-30] MED LIST changes: +GABA-1172 PO; -GABA-282 PO; -SENN-111 PO; +SENN-165 PO
== END ==
LOC: M RAD 09:49
PROVIDERS: ATTEND Internal Medicine Pulmonary Disease
DX: Z87.891 Personal history of nicotine dependence (principal)

== ENCOUNTER → 2024-12-02 | Outpatient (CLI) | payer OTHER | LOC: M RAD 14:22 | PROVIDERS: ATTEND Internal Medicine Cardiovascular Disease | DX: M79.604 Pain in right leg (principal); M79.605 Pain in left leg; E78.5 Hyperlipidemia, unspecified; Z72.0 Tobacco use ==